=== PATIENT | female | born 1945 | race Caucasian/White ===

== ENCOUNTER 2020-07-25 17:42 | Observation (INO) ==
[2020-07-25] MEDS ORDERED: Ondansetron 4 MG/2 ML VIAL IVP PRN (21:55)
[2020-07-25] MEDS ORDERED: Naloxone 0.4 MG/ML INJ IVP PRN (21:55)
[2020-07-25] MEDS ORDERED: Acetaminophen 325 MG TABLET PO PRN (21:55)
[2020-07-25] MEDS ORDERED: Perflutren Lipid Microsphere 1.3 ML in 0.9 % Sodium Chloride 8.7 ML IVP PRN (22:07)
[2020-07-25] MEDS ORDERED: *HR* Heparin 5,000 UNIT/ML VIAL IVP PRN ×2 (22:11)
[2020-07-25] MEDS: DilTIAZem 50 MG/50 ML IV.SOLN IVC SCH (22:31)
[2020-07-25] MEDS: Heparin 25,000UNIT/250ML 1/2NS 25,000 UNIT/250 ML IV.SOLN IVC SCH (22:32)
[2020-07-25 23:32] LABS: Heparin anti-factor XA UFH 0.42 IU/mL (0.30-0.70)
[2020-07-26 00:52] LABS: INR 1.3; Prothrombin Time 15.3 Seconds (9.4-12.1)
[2020-07-26 00:55] LABS: Activated Partial Thrombo Time 61.9 Seconds (26.0-36.0)
[2020-07-26 00:58] LABS: Basophils # 0.1 K/mcL (0.0-0.2); Basophils % 1.1 %; Eosinophils # 0.2 K/mcL (0.0-0.6); Eosinophils % 2.3 %; Hematocrit 45.8 % (35.3-44.9); Hemoglobin 15.4 g/dL (11.5-15.4); Immature Granulocytes % 0.2 % (0-4); Lymphocytes # 1.6 K/mcL (0.6-4.6); Lymphocytes % 18.4 %; Mean Corpuscular HGB Conc 33.6 g/dL (31.6-35.5); Mean Corpuscular Hemoglobin 34.1 pg (28.0-33.3); Mean Corpuscular Volume 101.3 fL (83.0-100.0); Mean Platelet Volume 10.7 fL (9.4-12.4); Monocytes # 0.7 K/mcL (0.0-1.3); Monocytes % 7.8 %; Neutrophils # 6.1 K/mcL (1.6-8.9); Platelet Count 230 K/mcL (140-400); Red Blood Count 4.52 M/mcL (3.82-4.97); Red Cell Distribution Width 12.9 % (11.5-14.5); Segmented Neutrophils % 70.2 %; White Blood Count 8.7 K/mcL (4.3-11.1)
[2020-07-26 01:04] LABS: BUN/Creatinine Ratio 22 (6-26); Blood Urea Nitrogen 16 mg/dL (8-23); Calcium 9.2 mg/dL (8.6-10.3); Carbon Dioxide 29 mEq/L (23-29); Chloride 99 mEq/L (98-107); Glucose 117 mg/dL (70-105); Magnesium 1.6 mg/dL (1.6-2.6); Osmolality,Calculated 292 (280-300); Potassium 3.3 mEq/L (3.5-5.1); Sodium 140 mEq/L (136-145); eGFR For African Americans > 60 (> 60); eGFR For Non-African Americans > 60 (> 60)
[2020-07-26] MEDS: DilTIAZem 50 MG/50 ML IV.SOLN IVC SCH (04:11)
[2020-07-26] MEDS: Furosemide 20 MG/2 ML VIAL IVP SCH ×2 (08:58→20:06)
[2020-07-26 09:34] LABS: Alanine Aminotransferase 22 Units/L (7-52); Albumin 3.7 g/dL (3.5-5.7); Albumin/Globulin Ratio 1.4 (1.1-2.2); Alkaline Phosphatase 83 Units/L (34-104); Aspartate Amino Transferase 24 Units/L (13-39); BUN/Creatinine Ratio 20 (6-26); Bilirubin,Direct 0.5 mg/dL (0.0-0.2); Bilirubin,Indirect 1.3 mg/dL (0.0-1.0); Bilirubin,Total 1.8 mg/dL (0.3-1.0); Blood Urea Nitrogen 14 mg/dL (8-23); Carbon Dioxide 31 mEq/L (23-29); Chloride 98 mEq/L (98-107); Globulin 2.7 g/dL (2.4-3.5); Glucose 134 mg/dL (70-105); Osmolality,Calculated 290 (280-300); Potassium 3.1 mEq/L (3.5-5.1); Sodium 139 mEq/L (136-145); Total Protein 6.4 g/dL (6.4-8.9); eGFR For African Americans > 60 (> 60); eGFR For Non-African Americans > 60 (> 60)
[2020-07-26 09:47] LABS: Thyroid Stimulating Hormone 2.805 mcIU/mL (0.340-5.600)
[2020-07-26] MEDS ORDERED: predniSONE 20 MG TABLET PO ONE (11:16)
[2020-07-26 12:25] LABS: Bilirubin,Urine Negative (Negative); Blood,Urine Negative (Negative); Clarity,Urine Clear (Clear); Color,Urine Colorless (Yellow); Glucose,Urine (UA) Normal (Normal); Ketones,Urine Negative (Negative); Leukocyte Esterase,Urine Large (Negative); Mucus,Urine Few per lpf (None-Few); Nitrite,Urine Negative (Negative); PH,Urine 7.5 pH Units (5.0-8.0); Protein,Urine Negative (Neg-Trace); Specific Gravity,Urine 1.007 (1.010-1.025); Squamous Epithelial Cell,Urine Few per hpf (None-Few); Urobilinogen,Urine Normal (Normal)
[2020-07-26] MEDS: Heparin 25,000UNIT/250ML 1/2NS 25,000 UNIT/250 ML IV.SOLN IVC SCH (23:40)
[2020-07-27] MEDS: Furosemide 20 MG/2 ML VIAL IVP SCH (07:55)
[2020-07-27] MEDS: Multivit/Ca/Min/Fe/FA 1 TAB TABLET PO SCH (08:04)
[2020-07-27 08:10] LABS: BUN/Creatinine Ratio 24 (6-26); Blood Urea Nitrogen 22 mg/dL (8-23); Calcium 8.9 mg/dL (8.6-10.3); Carbon Dioxide 29 mEq/L (23-29); Chloride 101 mEq/L (98-107); Glucose 136 mg/dL (70-105); Osmolality,Calculated 293 (280-300); Potassium 3.5 mEq/L (3.5-5.1); Sodium 139 mEq/L (136-145); eGFR For African Americans > 60 (> 60); eGFR For Non-African Americans > 60 (> 60)
[2020-07-27] MEDS ORDERED: lisinopriL 5 MG TABLET PO SCH (09:00)
[2020-07-27] MEDS ORDERED: 0.9 % Sodium Chloride 2,000 ML ONE (12:27)
[2020-07-27] MEDS ORDERED: Heparin 1,000 UNITS/500 mL 500 ML ONE (12:27)
[2020-07-27] MEDS ORDERED: Nitroglycerin 1,000 MCG/10 ML VIAL IV ONE (12:28)
[2020-07-27] MEDS ORDERED: ISOVUE-370 200 ML INFUS..BTL ONE (12:28)
[2020-07-27] MEDS ORDERED: *HR* Heparin 10,000 UNIT/10 ML VIAL ONE (12:28)
[2020-07-27] MEDS ORDERED: *HR* FentaNYL (PF) 100 MCG/2 ML VIAL ONE (12:46)
[2020-07-27] MEDS ORDERED: *HR* Midazolam HCl 2 MG/2 ML VIAL ONE (12:46)
[2020-07-27] MEDS: Apixaban 5 MG TABLET PO SCH (19:46)
[2020-07-28 01:42] LABS: BUN/Creatinine Ratio 30 (6-26); Blood Urea Nitrogen 22 mg/dL (8-23); Calcium 8.5 mg/dL (8.6-10.3); Carbon Dioxide 28 mEq/L (23-29); Chloride 102 mEq/L (98-107); Glucose 129 mg/dL (70-105); Osmolality,Calculated 293 (280-300); Potassium 3.2 mEq/L (3.5-5.1); Sodium 139 mEq/L (136-145); eGFR For African Americans > 60 (> 60); eGFR For Non-African Americans > 60 (> 60)
[2020-07-28 07:02] VITALS: BP 141/106
[2020-07-28] MEDS: Apixaban 5 MG TABLET PO SCH (08:23)
[2020-07-28] MEDS: Multivit/Ca/Min/Fe/FA 1 TAB TABLET PO SCH (08:23)
[2020-07-28] MEDS ORDERED: Furosemide 40 MG TABLET PO SCH (09:00)
[2020-07-28] MEDS ORDERED: lisinopriL 10 MG TABLET PO SCH (09:00)
[2020-07-28] MEDS ORDERED: Spironolactone 12.5 MG TABLET PO SCH (09:00)
[2020-07-28] MEDS ORDERED: Metoprolol XL (24 HR) Succ 50 MG TAB.ER.24H PO SCH ×2 (09:00→18:00)
[2020-07-28] MEDS ORDERED: predniSONE 20 MG TABLET PO SCH (09:00)
[2020-07-28] MEDS ORDERED: FLU Vac QV 20-21 (6Month+)/PF 0.5 ML SYRINGE IM ONE (09:19)
== END 2020-07-28 10:17 | disposition home or self-care (01) ==
LOC: 2ANU → SUATTDRO 20:44
PROVIDERS: ADMIT Internal Medicine; ATTEND Student in an Organized Health Care Education/Training Program